=== PATIENT | female | born 1955 | race Native Hawaiian/Other Pacific Islander ===

== ENCOUNTER 2019-04-07 16:00 | Outpatient (CLI) | payer BC ==
[2019-04-07 16:46] LABS: BASOPHILS % (AUTO) 0.5 % (0-1); EOSINOPHILS % (AUTO) 0.2 % (0-6); HEMATOCRIT 37.4 % (35.0-45.0); HEMOGLOBIN 12.9 g/dl (12.0-16.0); LYMPHOCYTES # (AUTO) 2.2 X10'3 (1.1-4.8); MEAN CORPUSCULAR HGB CONC 34.5 g/dL (33.0-36.5); MEAN CORPUSCULAR VOLUME 86.9 FL (78-98); MONOCYTES # (AUTO) 0.7 X10'3 (0-0.9); MONOCYTES % (AUTO) 7.6 % (2-12); NEUTROPHILS # (AUTO) 6.7 X10'3 (1.8-7.7); NEUTROPHILS % (AUTO) 68.7 % (42-75); PLATELET COUNT 429 X10'3 (140-440); RED BLOOD COUNT 4.31 X10'6 (4.20-5.60); RED CELL DISTRIBUTION WIDTH 12.8 % (11.5-14.5); WHITE BLOOD COUNT 9.7 X10'3 (4.5-11.0)
[2019-04-07 16:50] LABS: ALBUMIN 3.7 G/DL (3.4-5.0); ANION GAP 6 (8-16); BLOOD UREA NITROGEN 23 MG/DL (7-18); BUN/CREATININE RATIO 20.9 (6.6-38.0); CALCIUM 9.3 MG/DL (8.5-10.1); CHLORIDE 92 MMOL/L (99-107); GLUCOSE 264 MG/DL (70-104); SODIUM 136 MMOL/L (135-145); TOTAL CARBON DIOXIDE 37.7 MMOL/L (24-32); eGFR 50 ML/MIN
[2019-04-07 16:55] LABS: PARTIAL THROMBOPLASTIN TIME 27 SECONDS (22-32)
[2019-04-07 17:21] LABS: POTASSIUM 2.6 MMOL/L (3.5-5.1)
== END 2019-04-07 23:59 | disposition home or self-care (01) ==
LOC: SSTAY O 16:00 → EDSTATUS 04-11 06:30
PROVIDERS: ATTEND Internal Medicine Interventional Cardiology
DX: I10 Essential (primary) hypertension (principal); R06.02 Shortness of breath
CPT/HCPCS: 36415; 80048; 85025; 85610; 85730

== ENCOUNTER 2019-06-13 14:28 | Observation (INO) | payer BC ==
[2019-06-09 15:40] LABS: ALBUMIN 3.9 G/DL (3.4-5.0); ANION GAP 6 (8-16); BLOOD UREA NITROGEN 16 MG/DL (7-18); CHLORIDE 104 MMOL/L (99-107); CREATININE 0.89 MG/DL (0.40-0.90); GLUCOSE 90 MG/DL (70-104); POTASSIUM 4.6 MMOL/L (3.5-5.1); SODIUM 139 MMOL/L (135-145); TOTAL CARBON DIOXIDE 29.1 MMOL/L (24-32); eGFR 64 ML/MIN
[~2019-06-13] VITALS: Ht 167.6 cm; Wt 52.1 kg
[2019-06-13] MEDS ORDERED: normal saline 1,000 ML IV SCH (14:55)
[2019-06-13] MEDS ORDERED: diphenhydrAMINE 25mg capsule PO PRN (14:55)
[2019-06-13] MEDS ORDERED: LORazepam 0.5 MG tablet PO PRN (14:55)
[2019-06-13 15:32] LABS: BASOPHILS % (AUTO) 0.3 % (0-1); EOSINOPHILS # (AUTO) 0.1 X10'3 (0-0.9); EOSINOPHILS % (AUTO) 0.8 % (0-6); HEMATOCRIT 41.3 % (35.0-45.0); LYMPHOCYTES # (AUTO) 2.7 X10'3 (1.1-4.8); LYMPHOCYTES % (AUTO) 31.1 % (21-51); MEAN CORPUSCULAR HGB CONC 33.9 g/dL (33.0-36.5); MEAN CORPUSCULAR VOLUME 88.5 FL (78-98); MEAN PLATELET VOLUME 9.8 FL (7.4-10.4); MONOCYTES # (AUTO) 0.9 X10'3 (0-0.9); MONOCYTES % (AUTO) 10.2 % (2-12); NEUTROPHILS # (AUTO) 4.9 X10'3 (1.8-7.7); NEUTROPHILS % (AUTO) 57.6 % (42-75); PLATELET COUNT 294 X10'3 (140-440); RED BLOOD COUNT 4.67 X10'6 (4.20-5.60); WHITE BLOOD COUNT 8.6 X10'3 (4.5-11.0)
[2019-06-13 15:37] LABS: PARTIAL THROMBOPLASTIN TIME 25 SECONDS (22-32)
[2019-06-13] MEDS ORDERED: CHOL10002 PO (15:37)
[2019-06-13] MEDS ORDERED: OSC500T PO (15:37)
[2019-06-13] MEDS ORDERED: PANT-47 PO (15:37)
[2019-06-13] MEDS ORDERED: POTA20TA10 PO (15:37)
[2019-06-13] MEDS ORDERED: LACT1CAP65 PO (15:37)
[2019-06-13] MEDS ORDERED: [UNRECOGNIZED DRUG - CODE] PO (15:37)
[2019-06-13] MEDS ORDERED: LINA145C PO ×2 (15:37→19:51)
[2019-06-13] MEDS ORDERED: HYDR200T84 PO ×2 (15:37→19:50)
[2019-06-13] MEDS ORDERED: CYAN500T63 PO (15:37)
[2019-06-13] MEDS ORDERED: CLON2TAB11 PO (15:37)
[2019-06-13] MEDS ORDERED: MAGN500C16 PO (15:37)
[2019-06-13] MEDS ORDERED: PYRI50TA13 PO (15:37)
[2019-06-13 17:24] VITALS: BP 123/70
[2019-06-13] MEDS ORDERED: iohexol 350MG/ML 100ml bottle IV ONE (18:59)
[2019-06-13] MEDS ORDERED: LIDOcaine 1% (10mg/ml)w/preservative injection 20ml MDV ONE (18:59)
[2019-06-13] MEDS ORDERED: midazolam 2 mg/2 ml injection ONE ×4 (18:59→19:55)
[2019-06-13] MEDS ORDERED: fentaNYL/PF 50MCG/1 ML 2ML syringe ONE ×3 (18:59→19:54)
[2019-06-13] MEDS ORDERED: nitroGLYCERIN-Tridil 50MG/D5W 250 ML IV ONE (19:51)
[2019-06-13] MEDS ORDERED: HYDR25TA4 PO (19:51)
[2019-06-13] MEDS ORDERED: verapamil 2.5 mg/ml inj IV ONE (19:52)
[2019-06-13] MEDS ORDERED: heparin 1,000unit/ml 10ml vial 10 ML ONE (19:52)
[2019-06-13] MEDS ORDERED: FURO-150 PO (19:52)
[2019-06-13] MEDS ORDERED: ondansetron/PF 4mg/2ml inj IV PRN (21:10)
[2019-06-13] MEDS ORDERED: proCHLORperazine 10 MG/2 ml inj IV PRN (21:10)
[2019-06-13] MEDS ORDERED: OXAZEpam 15mg capsule PO PRN (21:10)
--- NOTE | 2019-06-13 21:35 | NUR ---
Pharmacy called and mentioned that they are not going to put the patients medications in the system since she is leaving [facility], but if things changes and patient stays overnight then they will enter the patient's Meds in the system.
--- NOTE | 2019-06-13 21:35 | NUR ---
Released 2 cc's of air from TR band, no bleeding was present at time of removal, went to check on patient a few minutes later the radial site was bleeding. I replaced 6 cc's of air into the TR to bring it back to the original amount from wastewater analyst lab analyst. Will continue to monitor and assess frequently.
[2019-06-13 22:00] VITALS: BP 119/59
--- NOTE | 2019-06-13 23:48 | NUR ---
The patient's TR band removed. No sign of bleeding. The patient is alert oriented x4. The peripheral pulses is present. All the discharge documents given to patient and informed her to follow up with her md do resident urgent care as scheduled. All questions answered. Addendum: 06/13/19 at 2352 by Bennie Ford RN The IV access removed. no signs of bleeding.
--- NOTE | 2019-06-13 23:54 | NUR ---
The patient discharged at 2340.
== END 2019-06-13 23:40 | disposition home or self-care (01) ==
LOC: SSTAY O 14:28 → MED 3N 19:36
PROVIDERS: ADMIT Internal Medicine Interventional Cardiology; ATTEND Internal Medicine Interventional Cardiology
DX: R07.2 Precordial pain (principal); I48.91 Unspecified atrial fibrillation; I49.9 Cardiac arrhythmia, unspecified; I44.4 Left anterior fascicular block; G47.33 Obstructive sleep apnea (adult) (pediatric); G45.9 Transient cerebral ischemic attack, unspecified; I10 Essential (primary) hypertension; Z99.89 Dependence on other enabling machines and devices; Z85.038 Personal history of other malignant neoplasm of large intestine; Z79.899 Other long term (current) drug therapy; Z88.5 Allergy status to narcotic agent; Z88.2 Allergy status to sulfonamides; Z88.8 Allergy status to other drugs, medicaments and biological substances
CPT/HCPCS: 36415; 80048; 85025; 85610; 85730; 93005; 93458; C1769; C1894; G0378; J1644; J2001; J2250; J3010; J7030; Q0163; Q9967; 99152; A4620; A5120; J3490